=== PATIENT | female | born 1955 | race Caucasian/White ===

== ENCOUNTER 2016-04-17 17:16 | Emergency (ER) | payer BC ==
[2016-04-17 17:48] LABS: LEUKOCYTE ESTERASE,URINE 2+ (NEGATIVE); NITRITE,URINE NEGATIVE (NEGATIVE); PH,URINE 6.5 (5.0-7.5)
[2016-04-17 17:54] VITALS: BP 142/82; PULSE 65; RESP 16; TEMP 98.1; O2SAT 96
[2016-04-17 17:57] LABS: BACTERIA 1+ /hpf (NONE SEEN); MUCUS TRACE /lpf (NONE-1+); RBC,URINE 25-50 /hpf (0-3)
[2016-04-17 17:58] LABS: COLOR PALE YELLOW
[2016-04-17] MEDS ORDERED: CEPHALEXIN 500MG PREPACK#4 BTL TAKEHOME ONE (18:27)
[2016-04-17] MEDS ORDERED: NITROFURANTOIN 100MG PREPACK#2 BTL TAKEHOME ONE (18:29)
--- NOTE | 2016-04-17 18:31 | UCPHY ---
H & P Time Seen by Provider: 04/17/16 17:48 Patient Type: New HPI/ROS: This patient complains of dysuria, frequency and urgency. She also has suprapubic pressure and her symptoms are the same as previous bladder infections. She notes no exacerbating factors except for partial relief from peridium that she took prior to arrival. ROS: No fevers or chills. No back pain. No vomiting. 5 point ROS is otherwise negative. 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 Smoking Status: Never smoked Physical Exam: Physical Exam Vital signs are normal. General: No acute distress Eyes: Pupils equal and react to light. Extraocular motions are intact. Lungs: No respiratory distress. Cardiac: Brisk capillary refill is intact throughout. Abdomen: Mild suprapubic tenderness with no guarding or rebound. Back: No CVA tenderness. Skin: No rash or pallor. Neuro: Alert and oriented x3 with no sensorimotor deficits. Initial differential diagnosis: Interstitial cystitis, bacterial cystitis, doubt pyelonephritis Constitutional: Initial Vital Signs Temperature (C) 36.7 C 04/17/16 17:51 Heart Rate 65 04/17/16 17:51 Respiratory Rate 16 04/17/16 17:51 Blood Pressure 142/82 H 04/17/16 17:51 O2 Sat (%) 96 04/17/16 17:51 O2 Delivery Mode Room Air Allergies/Adverse Reactions: cefuroxime axetil [From Ceftin] Allergy (Verified 04/17/16 18:29) Home Medications: Medication Instructions Recorded Nitrofurantoin Macrobid [Macrobid] 100 mg PO BID #10 cap 04/17/16 MDM/Departure - [facility] ED Course/Re-evaluation: Macrobid p. o.. I counseled patient regarding cystitis. - Depart Disposition: Home, Routine, Self-Care Clinical Impression: Cystitis Condition: Good Instructions: Urinary Tract Infection in Women (ED) Additional Instructions: Diagnosis: Cystitis Plan: Macrobid antibiotic Continue peridium if needed for discomfort Drink plenty fluids Return for any significant worsening despite the treatment plan Prescriptions: Nitrofurantoin Macrobid [Macrobid] 100 mg PO BID #10 cap - PQRS PQRS Measurement: NA
== END 2016-04-17 18:40 | disposition home or self-care (01) ==
LOC: CED 17:16
DX: N30.90 Cystitis, unspecified without hematuria (principal)
CPT/HCPCS: 81003-PO; 81015-PO; 99202-PO; G0463-PO

== ENCOUNTER 2017-08-02 18:37 | Emergency (ER) | payer BC ==
--- NOTE | 2017-08-02 19:01 | EDPHY ---
H & P Time Seen by Provider: 08/02/17 18:44 HPI/ROS: CHIEF COMPLAINT: Head injury HISTORY OF PRESENT ILLNESS: Patient was outside and had a metal tent pole blow over from the wound and hit her in the head. She is transported by EMS with a headache and a vertex of the scalp laceration. She says she feels very anxious, she feels generally weak in her arms but especially her legs. No neck pain. No back pain. No vision symptoms and no loss of consciousness or seizure activity at the time of the fall. REVIEW OF SYSTEMS: Eye: no change in vision ENT: No ear changes Cardiac: no chest pain or syncope Pulmonary: no cough or SOB Abdomen: No vomiting or abdominal pain Musculoskeletal: no back pain or neck pain Skin: Scalp laceration Neuro: Headache Constitutional: no fever : no urinary symptoms A comprehensive 10 point review of systems is otherwise negative aside from elements mentioned in the history of present illness. PAST MEDICAL HISTORY: Migraine headaches Social history: Visiting from [place] General Appearance: Alert and conversant, cooperative. Eyes: No scleral icterus. Pupils equal reactive extraocular motion intact ENT, Mouth: Normal mucous membranes. No hemotympanum Respiratory: Normal respiratory effort, breath sounds equal, lungs are clear to auscultation. Cardiovascular: Regular rate and rhythm. Gastrointestinal: Abdomen is soft and non tender. Neurological: Alert, face symmetric, speech fluent. She certainly can move all 4 extremities, toes are downgoing bilaterally. She has normal dorsiflexion and plantar flexion and no clonus. Skin: 1 cm vertex of the scalp full-thickness laceration. Musculoskeletal: No extremity or midline spinal tenderness to palpation. Psychiatric: Appears moderately anxious. Emergency Department course/MDM: Procedure: Laceration repair. Verbal consent was obtained from the patient. The 1 cm laceration on the scalp was anesthetized using 0.5% bupivacaine with epinephrine. The wound was irrigated with standard emergency department protocol, draped and explored. There were no deep structures involved. No foreign body found. The wound was repaired with luz. The wound repair was simple. Excellent hemostasis was obtained. Wound care instructions were discussed and the patient was warned regarding scarring. The procedure was performed by myself. Patient was able to stand but still states that she has some leg weakness bilaterally. On further questioning she really says she has a lot of muscle spasm inner thighs making it difficult for her to stand. Head CT ordered and cervical spine CT ordered for head trauma with peripheral neurologic symptoms. Patient re-evaluated after CT. She still feels like her legs are heavy and weak and with a cervical flexion mechanism, MRI discussed and consented. IV Ativan 1 mg for relief of muscle spasm as well as anxiety and ability to tolerate CT scanner. She has a lot of muscle spasm in her upper legs and thighs. She is able to stand and walk. She has 2-3+ bilateral patellar reflexes. 2127: MRI per Dr. Guardado does not show any cord edema. No evidence of spinal cord compression or traumatic injury with her hyperflexion. Results discussed with patient and family. Ambulatory on discharge. Feels better at the time of this discussion. Blood pressure noted to be elevated but I do not think there is evidence for hypertensive emergency. Smoking Status: Never smoked Constitutional: Initial Vital Signs Temperature (C) 36.9 C 08/02/17 18:40 Heart Rate 72 08/02/17 18:40 Respiratory Rate 16 08/02/17 18:40 Blood Pressure 174/109 H 08/02/17 18:40 O2 Sat (%) 97 08/02/17 18:40 O2 Delivery Mode Room Air Allergies/Adverse Reactions: cefuroxime axetil [From Ceftin] Allergy (Verified 04/17/16 18:29) Home Medications: Medication Instructions Recorded Celexa 08/02/17 Medical Decision Making - Diagnostics Imaging Results: Imaging Impressions Cervical Spine CT 08/02/17 19:22 Impression: 1. C5-C6 degenerative disk disease, without acute fracture. Results called to Dr. Wolfgang Baptiste at the time of the interpretation. Head CT 08/02/17 19:22 Impression: Normal noncontrast CT of the brain. Results called to Dr. Wolfgang Baptiste at 8:20 PM at the time of the interpretation. Cervical Spine MRI 08/02/17 20:26 Impression: 1. No evidence of acute traumatic injury to the cervical spine. 2. Diffuse annular bulging and secondary mild acquired central canal stenosis and bilateral neural foraminal stenosis at C5-C6, without abnormal cervical cord signal. Results called to Dr. Wolfgang Baptiste at 9:30 PM. Normal head and cervical spine per Dr. Guardado at 8:21 p.m. Imaging: Discussed imaging studies w/ typists supervisor Radiologist, I viewed and interpreted images myself Differential Diagnosis: Differential diagnosis considered for head injury including but not limited to concussion, skull fracture, intraparenchymal contusion, subarachnoid, subdural and epidural hematoma. - Data Points Medications Given: Discontinued Medications Diphenhydramine HCl (Benadryl) 50 mg PO EDNOW ONE Stop: 08/02/17 20:07 Last Admin: 08/02/17 20:08 Dose: 50 mg Ibuprofen (Motrin) 600 mg PO EDNOW ONE Stop: 08/02/17 20:07 Last Admin: 08/02/17 20:08 Dose: 600 mg Lorazepam (Ativan Injection) 1 mg IVP EDNOW ONE Stop: 08/02/17 20:26 Last Admin: 08/02/17 20:27 Dose: 1 mg Departure - Departure Disposition: Home, Routine, Self-Care Clinical Impression: Head injury Qualifiers: Encounter type: initial encounter Qualified Code(s): S09.90XA - Unspecified injury of head, initial encounter Scalp laceration Qualifiers: Encounter type: initial encounter Qualified Code(s): S01.01XA - Laceration without foreign body of scalp, initial encounter Condition: Good Instructions: Laceration (ED), Head Injury (ED) Additional Instructions: Wound Care Follow-Up: Removal of sutures in 10- days. Suture removal is complimentary in uncomplicated cases. Infection or abnormal findings would require reevaluation by the MD. In that case, you may be billed. Referrals: Rolando Jeffrey MD [Medical Doctor] - As per Instructions (our head control clerk neuro trauma specialist)
[2017-08-02] MEDS ORDERED: diphenhydrAMINE 50 MG CAP PO ONE (20:05)
[2017-08-02] MEDS ORDERED: IBUPROFEN 600 MG TAB PO ONE ×2 (20:05→20:06)
[2017-08-02] MEDS ORDERED: diphenhydrAMINE 25 MG CAP PO ONE (20:06)
[2017-08-02] MEDS ORDERED: LORazepam 2 MG/ML INJ IVP ONE (20:25)
[2017-08-02] MEDS ORDERED: LORazepam 2 MG/ML INJ ONE (20:26)
[2017-08-02 21:22] VITALS: BP 135/84
== END 2017-08-02 21:50 | disposition home or self-care (01) ==
LOC: EDUNIT#
PROC: 0HQ0XZZ Repair Scalp Skin, External Approach (ICD-10-PCS; principal; 2017-08-02)
DX: S01.01XA Laceration without foreign body of scalp, initial encounter (principal); W22.8XXA Striking against or struck by other objects, initial encounter
CPT/HCPCS: 96374; J2060